=== PATIENT | female | born 1955 | race Caucasian/White ===

== ENCOUNTER 2021-07-30 04:57 | Inpatient (IN) | payer MEDICARE ==
[~2021-07-30] VITALS: Ht 160 cm; Wt 70.0 kg
--- NOTE | 2021-07-30 10:46 | NUR ---
PT BROUGHT TO CCU BY THIS RN. INITIAL ASSESSMENTS COMPLETED. BLOOD ADMINISTRATION INITIATED, FLUIDS STARTED, MD ORDERS REVIEWED. PT HAS 2 IV SITES THAT FLUSH WELL. MULTIPLE BRUISES SCATTERED ALL OVER BODY FROM MULTIPLE REPORTED FALLS. PT REPORTS SHE HAS NOT BEEN EATING OR DRINKING MUCH OVER THE PAST 2 WEEKS, DOES NOT RECALL WHEN LAST BM WAS, BUT DOES REPORT IT BEING BLACK AND TARRY. PT LEFT READERS AND CANE AT HOME, READERS OBTAINED AND GIVEN TO PT. PT ASSISTED TO REPOSITION IN BED. US NOW IN ROOM. PER DR NEWMAN CONSULT WITH DR ALMEIDA, PT WILL DO BOWEL PREP TODAY AND HAVE SCOPE COMPLETED TOMORROW. PT AGREEABLE, BUT REPORTS SHE'S BEEN "DREAMING OF FOOD".
--- NOTE | 2021-07-30 11:14 | NUR ---
DR NEWMAN IN TO SEE PT AND CONSULT OF PLANNED SCOPE PROCEDURE FOR TOMORROW.
--- NOTE | 2021-07-30 12:30 | NUR ---
Spoke with Deidre. She is recieving blood and states she has been very weak, dizzy, and sob. She lives alone in an apartment and states she has no friends here. Her mother, NEELAM lives in [place]. I asked if she has considered moving to [place] and she states not really. We discussed her finances as she thinks she may need placement. She has Part A only. She states she has spent her [facility] and has approx $10,000 in savings. We discussed medicaid, but she will not qualify until she has spent down to $2000. She cannot remember her or her mom's phone number. Let her know I will follow up with her tomorrow to check if she has work ed with PT. She is unsure of what her needs will be. She does not answer when I ask about alcohol and drugs, but per nurses there is an issue wit alcohol. I will follow up with this pt tomorrow.
--- NOTE | 2021-07-30 12:31 | NUR ---
MED REC COMPLETE
--- NOTE | 2021-07-30 13:30 | NUR ---
PT SITTING UP IN BED DRINKING HER CLEAR LUNCH AND ALSO DRINKING MIRALAX FOR PREPROCEDURE CLEAN OUT. BLOOD TRANSFUSING, MAINTENANCE FLUIDS INFUSING. MEANS CATH CONTINUES TO DRAIN ORANGE/KAREEN URINE, QUANTITY SUFFICIENT. PT WATCHING TV, HAS NO OTHER REQUESTS OR NEEDS AT THIS ITME. SHAHNAZ FROM CASE MANAGEMENT IN WITH PT TO ASSESS NEEDS AT DISCHARGE.
--- NOTE | 2021-07-30 15:20 | NUR ---
PATIENT AWAKE IN BED, DRINKING MIRALAX. EXTRA BEDDING REMOVED FROM UNDER PATIENT. BRIEF ON PATIENT AND CHUX UNDER. BACK WAIPED DOWN AND FEET WASHED. LEGS ELEVATED AND SCDS ON. CALL LIGHT IN EASY REACH
--- NOTE | 2021-07-30 16:48 | NUR ---
PT RESTING IN BED HEAD ELEVATED 30 DEGREES, PT'S EYES CLOSED RR EVEN 16 BPM, V/S STABLE NO NEW CONCERNS AT THIS TIME.
--- NOTE | 2021-07-30 17:21 | NUR ---
LAB INTO DRAW BLOOD AT THIS TIME FOR REPEAT CBC.
--- NOTE | 2021-07-30 18:45 | NUR ---
LAB ARRIVED AT NURSES STATION TO REPORT THE CBC MACHINE IS POTENTIALLY IN ERROR WITH LAST BLOOD SAMPLE, HE SAID HE NEEDED A NEW SAMPLE. THIS RN PULLED SAMPLE FROM LEFT FA IV SITE. WASTED 3ML. WHILE IN THE ROOM PT REPORTS "I HAVE BEEN TRYING TO POOP FOR 30MIN, MY GUTS RUMBLING.
--- NOTE | 2021-07-30 20:40 | NUR ---
PATIENT CALLED FOR ASSISTANCE AND HAD A SMALL AMOUNT OF EMESIS. PRN ZOFRAN AND PROTONIX PROVIDED PER ORDERS. PATIENT DENIES NAUSEA STATES "IT'S JUST A REFLEX, MY STOMACH IS TOO FULL". ASSISTED [place] [facility] WAS INCONTINENT OF A MEDIUM LIQUID STOOL. ASSISTED PATIENT TO CLEAN UP AND NEW LINEN AND GOWN PROVIDED. PATIENT RETURNED TO BED. ABLE TO STAND INDEPENDENTLY BUT FEELS DIZZY AFTER A COUPLE MINS. VS STABLE. PATIENT BACK IN BED. CALL LIGHT IN REACH. WARM BLANKET PROVIDED.
--- NOTE | 2021-07-30 21:30 | NUR ---
DISCUSSED PATIENT'S IV FLUIDS WITH MD, PATIENT APPEARS SLIGHTLY DRY. VERBAL ORDER FOR IV FLUIDS RECEIVED. VERIFIED VIA REPEAT BACK.
--- NOTE | 2021-07-30 23:01 | NUR ---
PATIENT RESTING IN BED. IV FLUIDS INFUSING IN LEFT FOREARM. PATIENT REPORTS PAIN IN THE IV SITE ON HER RIGHT HAND. SITE REDRESSED, FLUSHES EASILY. PATIENT DENIES NEED FOR BSC, ATTENDS HAVE SMALL AMOUNT OF STILL. NEW ATTENDS PLACED. PATIENT CONTINUES TO WORK ON HER BOWEL PREP, ABOUT 1/3 OF THE LAST BOTTLE REMAINS. VS STABLE. PATIENT REPORTS FEELING TIRED. ALLOWED PATIENT TO REST. CALL LIGHT IN REACH.
--- NOTE | 2021-07-31 00:30 | NUR ---
PATIENT APPEARS TO BE SLEEPING WITH EYES CLOSED. VS STABLE. URINE OUTPUT AVERAGE 20ML/HR. IV FLUIDS PER ORDER, SITE WNL.
--- NOTE | 2021-07-31 03:00 | NUR ---
PATIENT APPEARS TO BE SLEEPING. WAKES EASILY TO TOUCH. DENIES ANY NEEDS. ASSISTED PATIENT TO REPOSITION IN BED. IV SITE WNL, IVF PER ORDER. MEANS HAS RED URINE NOTED, LOW URINE OUTPUT.
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
--- NOTE | 2021-07-31 06:30 | NUR ---
PATIENT WOKE EASILY. ATTENDS HAVE A LARGE AMOUNT OF STOOL IN ATTENDS. CARLITO CARE DONE. MEANS CARE. BARRIER CREAM APPLIED. PATIENT DENIES PAIN OR NAUSEA. IV FLUIDS PER ORDER. MEANS EMPTIED. VS STABLE. SCDs IN PLACE.
--- NOTE | 2021-07-31 07:06 | NUR ---
DISCUSSED LOW URINE OUTPUT AND LAB RESULTS WITH . VERBAL ORDERS FOR MAG AND K+ REPLACEMENT. AND 2 UNITS OF PRBC TO BE ON HOLD.
--- NOTE | 2021-07-31 07:18 | EKG ---
[facility] [address] [facility] [place], [place] [address] Signed Normal sinus rhythm Prolonged QT Abnormal ECG No previous ECGs available Confirmed by IOANA GUEVARA MD ([id number]) on 07/31/2021 7:18:16 AM Electronically Signed By: IOANA GUEVARA MD 07/31/21 0718 PATIENT NAME: KAREN SEGOVIA Electrocardiogram DATE OF : 51 PHYSICIAN: IOANA GUEVARA MD REPORT #: [id number] REPORT IS CONFIDENTIAL AND NOT TO BE RELEASED WITHOUT AUTHORIZATION
--- NOTE | 2021-07-31 07:45 | NUR ---
CALL LIGHT ANSWERED, PATIENT WAS INCONTINENT OF SMALL AMOUNT OF BROWN STOOL. NEW BRIEF PROVIDED. VITALS CHARTED, MEANS EMPTIED. CALL LIGHT IN EASY REACH. KALPESH GOMEZ IN ROOM AT THIS TIME
--- NOTE | 2021-07-31 08:20 | NUR ---
Dr. Mendez notified patient is not having clear stools yet. Informed this nurse she will have an upper scope today, complete bowel prep this afternoon and lower likely tomorrow. No other orders at this time.
--- NOTE | 2021-07-31 08:20 | NUR ---
CALL LIGHT ANSWERED, PATIENT UP TO BSC. PATIENT FEELS URGE BUT UNABLE TO HAVE BM. DR GUEVARA IN TO SEE PATIENT. PATIENTS HAIR COMBED AND PARTIAL BEDBATH GIVEN. PATIENT BACK TO BED. LEFT IV IS LEAKING SLIGHTLY, AND BLOOD NOTED IN KALPESH MEANS AND DR YOUNG. CALL LIGHT IN EASY REACH. NO OTHER NEEDS AT THIS TIME
--- NOTE | 2021-07-31 08:28 | NUR ---
Called and spoke with Marlyn from [facility]. Requested to establish care for this pt with Dr. Sandy. Marlyn states this pt has seen Clarissa Miller 4 times through the walk in clinic. Asked if she could establish care with whomever she can get. Pt had stated she doesn't care, just wants a PCP.
--- NOTE | 2021-07-31 10:36 | NUR ---
PATIENT RESTIN COMFORTABLY IN BED. NO NEEDS AT THIS TIME. CALL LIGHT IN REACH
--- NOTE | 2021-07-31 12:15 | NUR ---
PATIENT SCOOTS TO CART FROM BED WITH MOD ASSIST X1. MEANS CATHETER BAG EMPTIED. INCONTINENT OF SMALL AMOUNT OF LOOSE, BROWN STOOL. TAKEN TO SURGERY ON CART WITH SURGERY NURSE. NO LONGER ON HEART MONITOR OR VITALS MACHINES FOR TRANSFER FOR SURGERY.
--- NOTE | 2021-07-31 13:28 | NUR ---
Returns from surgery. Lethargic but waking up quickly. Assessment completed. Denies pain. VS WNL. Call light in reach, bed rails up X2.
--- NOTE | 2021-07-31 16:25 | NUR ---
Patient sitting up in bed, drinking miralax for bowel prep. Alert and oriented. Remains without signs of alcohol withdrawal at this time.
--- NOTE | 2021-07-31 17:25 | NUR ---
Update from Rn. Pt EGD was completed, she was unable to complete prep for colonoscopy and cont. prep at this time. I did receive a call from the [facility] and pt has been scheduled to see Clarissa Miller August 11 at 2 pm for a pcp.
--- NOTE | 2021-07-31 20:00 | NUR ---
ROUNDING ON PT SHE IS SITTING UP IN BED ALERT AND ORIENTED, SHE HAS FINISHED HER BOWEL PREP AND IS NOW EATING HERE CLEAR LIQUID TRAY. SHE REPORTS NO PAIN OR NAUSEA AT THIS TIME. DISCUSSED PLAN OF CARE CINTIA, UP TO BEDSIDE COMMODE/BEDPAN, NPO AT 0300.
--- NOTE | 2021-07-31 21:22 | NUR ---
ROUNDING INTO PT ROOM FOR ASSESSMENT AND HS MEDICATIONS, PT RESTING INBED, SHE SAID "IM WET MY WHOLE BED IS WET" THIS RN ASSISTED PT UP TO BEDSIDE COMMODE WITH CANE PROVIDED PER HER BASELINE. PT TOLERATED ACTIVITY WELL, MINIMAL LIFT ASSIST. FULL BED CHANGE AND FULL PT WIPE DOWN, PT ASSIST BACK TO BED, PROVIDED WARM BLANKETS SHE HAS COMPLETED HER CLEAR LIQUID TRAY, SHE REPORTS NO PAIN OR NAUSEA. PT'S FULL BED SOAKED WITH YELLOW BILE COLOR STOOL, DEPENDS ENTIRELY SATURATED, PT GOWN WAS SATURATED. PT BT ACTIVE. SHE REPORTS SHE DOES NOT FEEL HER STOMACH RUMBLING ANYMORE.
--- NOTE | 2021-07-31 23:22 | NUR ---
PT RESTING QUIETLY IN BED, EYES CLOSED RR REGULAR AT 14 BPM, OXYGEN SATURATION AT 94% ON ROOM AIR. NO DISTRESS NOTED.
--- NOTE | 2021-08-01 01:29 | NUR ---
PT CALLED TO REPORT "I EITHER NEED TO GO OR MAYBE I HAVE ALREADY GONE" IN REGARDS TO BM. PT ROLLED TO SIDE, SHE HAD INCONT. OF LIQUID STOOL YELLOW COLOR NO FORMED PARTICLES. PT CHANGED BARRIER CREAM APPLIED, AFTER CLEANING SKIN WELL, PT SAID "OH, I HOPE I AM DOING GOOD AND CAN GO HOME TOMORROW" THIS RN EXPLAINED TO PT THAT AFTER HER PROCEDURE SHE MAY NEED SOME PHYSICAL THERAPY TO ASSESS IF SHE IS SAFE TO D/C WHEN THE DOCTORS DECIDE YOU ARE MEDICALLY CLEARED YOU HAVE NOT BEEN UP AMBULATING, AND YOU HAVE HAD MULTIPLE FALLS AT HOME. PT SAID "I WILL DO WHAT EVER I NEED TO SO I CAN GO HOME SAFE"
--- NOTE | 2021-08-01 04:19 | NUR ---
PT RESTING QUIETLY IN BED EYES CLOSED, RR 13 BPM, NO DISTRESS ON VISUAL ASSESSMENT.
--- NOTE | 2021-08-01 05:47 | NUR ---
ROUNDING IN PT ROOM, PT REPORTS SHE IS PASSING GAS, CHECKED DEPENDS FOR STOOL, DEPENDS ARE CLEAN. PT REPOSITIONED IN BED. NO OTHER NEEDS AT THIS TIME. CRITICAL VALUE REPORTED TO AND CHARTED ACCORDINGLY
--- NOTE | 2021-08-01 06:45 | NUR ---
blood infusion started at this time
--- NOTE | 2021-08-01 08:05 | OR ---
[facility] [address] [place], [place] [address] Signed DATE OF OPERATION: 07/31/2021 SURGEON: Petty Newman MD PREOPERATIVE DIAGNOSES: 1. Anemia. 2. Possible chronic diarrhea. 3. History of daily alcohol use. 4. Pancytopenia. 5. Ultrasound with negative cirrhosis of the liver or varices. POSTOPERATIVE DIAGNOSIS: Ngvaisll-dn-veqyah diffuse gastritis. PROCEDURES: Esophagogastroduodenoscopy with CLOtest and biopsy of the pyloric bulb and antrum. ESTIMATED BLOOD LOSS: None. INDICATIONS: Karen is a 65-year-old female, who apparently lives alone and is living off her savings. She does drive, but she likes to drink vodka everyday. It has been over 12 years since she has been to a doctor. She is and never having children. She said her mom is down around [place], [place]. She thinks she has intermittent melena for years. She has been developing increasing dyspnea on exertion and falling frequently with multiple ecchymoses around her body. She said she can usually call her neighbor, who can come and help her get up. On this occasion, she was unable to reach the phone initially, and finally when she did reach the phone, she called EMS to come to the local ER. In the ER, her stool was brown on exam and guaiac negative. Her abdomen did not show any hepatosplenomegaly or ascites. Her speech is a bit slow, but generally appropriate. She has pancytopenia, including hemoglobin level of 7.1 with a mean cell volume of 104 and the platelet count is down at 80. Her BUN was only 23, the creatinine is 1.23, INR was 1.2. Her alcohol was negative. Total bilirubin is 2.5, AST 83, ALT T 37, alkaline phosphatase is 64, albumin was 3.3. The ultrasound of liver came back and there was some fatty liver, but no obvious cirrhosis or ascites or portal hypertension. Her COVID was negative, and the urine seemed to be dirty, awaiting on the urine culture. In the meantime, she was admitted to the Internal Medicine Service. She received 2 units of packed red blood cells and now her hemoglobin is up to 9.3. Her chest x-ray was unremarkable. I have been asked to see her yesterday as a general surgeon on-call. Electronically Signed By: PETTY NEWMAN MD 08/01/21 0805 PATIENT NAME: KAREN SEGOVIA OPERATIVE REPORT DATE OF : 51 REPORT #: [id number] PHYSICIAN: PETTY NEWMAN MD PCP: NO PRIMARY CARE PHYSICIAN REPORT IS CONFIDENTIAL AND NOT TO BE RELEASED WITHOUT AUTHORIZATION [facility] [address] [place] [id number] Signed She really did not tolerate her bowel prep very well and vomited up a fair amount of that. Therefore, we decided today just to do the upper endoscopy. Of course, she is on Protonix twice a day at this point. She told me she has never had upper lower endoscopy. I explained to her the nature of the two tests. She understands there is risk including, but not limited to gas bloating, crampy abdominal pain, bleeding, perforation requiring surgery, and missed diagnosis. Also, because of her significant medical issues and her acute situation, we asked for monitored anesthesia care, which proved to be a dyer decision. She had expressed understanding and wished to proceed. DESCRIPTION OF PROCEDURE: Karen was taken into our endoscopy suite and placed in the supine semi-recumbent position. A bite block was utilized for the case. She was given monitored anesthesia care with propofol per our nurse hvac installation technician. The adult gastroscope was introduced and advanced under direct visualization of camera into the stomach. She clearly had ljvfshjg-jy-eqavez diffuse hemorrhagic gastritis. The scope passed down to the antrum, it took me a few minutes to get through the antrum into the pyloric bulb and out into the duodenum. The duodenum was unremarkable. The pyloric channel of course was inflamed as was the stomach, no ulcerations. We took biopsies from the pyloric bulb as well as antrum for pathologic review. I took biopsies from the antrum for CLOtest. Upon retroflexion of scope, I could not appreciate any hiatal hernia. The scope was then withdrawn up to the GE junction, which was compliant without stricture. In general, the Z-line remains intact. There is only minimal disruption to the Z-line. There was no Polanco mucosa. We could not appreciate any esophageal varices. The distal, middle, and upper esophagus were unremarkable. After this, the gas was suctioned out, the gastroscope removed. Karen tolerated the procedure quite well. RECOMMENDATIONS: Karen will be returned to the ICU bed on the Internal Medicine Service. She will be allowed clears today. We will see if she can tolerate some additional bowel prep today with possible colonoscopy tomorrow with the next day. If that is not successful, she might need had this done as an outpatient once her gastritis settles down. In the meantime, she will stay on her proton pump inhibitor. Petty Newman MD ALB/MODL /[id number] Electronically Signed By: PETTY NEWMAN MD 08/01/21 0805 PATIENT NAME: KAREN SEGOVIA OPERATIVE REPORT DATE OF : 51 REPORT #: [id number] PHYSICIAN: PETTY NEWMAN MD PCP: NO PRIMARY CARE PHYSICIAN REPORT IS CONFIDENTIAL AND NOT TO BE RELEASED WITHOUT AUTHORIZATION [address] [address] Signed cc: Patient Chart Petty Newman MD Copies: PETTY NEWMAN MD ~ Electronically Signed By: PETTY NEWMAN MD 08/01/21 0805 PATIENT NAME: KAREN SEGOVIA OPERATIVE REPORT DATE OF : 51 REPORT #: [id number] PHYSICIAN: PETTY NEWMAN MD PCP: NO PRIMARY CARE PHYSICIAN REPORT IS CONFIDENTIAL AND NOT TO BE RELEASED WITHOUT AUTHORIZATION
--- NOTE | 2021-08-01 09:01 | NUR ---
IN PATIENT'S ROOM FOR ASSESSMENT, CERTIFIED TRAVEL COUNSELOR, AND VITALS. PT IS ALERT, ORIENTED AND TALKATIVE THIS AM. PT WAITING TO HAVE HER LOWER SCOPE TODYA AND REMAINS NPO. PT EAGER TO START SOLID FOODS TODAY. IV MAG FINISHED. 1 UNIT OF PRBCs HAS NOW COMPLETED. IV POTASSIUM AND MORE IV MAG TO BE STARTED.
--- NOTE | 2021-08-01 09:24 | NUR ---
SP02 DROPPING TO 88% AND THEN COMING BACK UP TO 90-91%. PT ASKED TO TAKE DEEP BREATHS BUT STILL HAS SOME TIMES OF 88%. 2 L NC APPLIED TO PATIENT. SODIUM PHOS NOW INFUSING, POTASSIUM 40 MEQ, AND IV MAG. PT TOLERATING WELL. PT TO SIGN CONSENT FORM FOR LOWER SCOPE.
--- NOTE | 2021-08-01 11:43 | NUR ---
[facility] ANESTHESIA GAVE REPORT TO KALPESH IVERSON.
--- NOTE | 2021-08-01 11:45 | NUR ---
PATIENT OFF TO LOWER SCOPE AT 1045. PT RETURNS TO CCU AT 1125 AFTER SCOPE. PT AWAKENING FAIRLY EASILY AND ANSWERING QUESTIONS. PER REPORT FROM MIXING OPERATOR, PT DID WELL WITH PROCEDURE AND ONLY RECEIVED IV PROPOFOL FOR SEDATION. DR. NEWMAN IN ROOM AND DISCUSSES WITH PATIENT HOW HER SCOPE WENT. PT TO ADVANCE TO A REGULAR DIET AND CAN HAVE MEANS D/C LATER. NEW IV INTO RIGHT FOREARM BY THIS RN. IV CALCIUM GLUCONATE STARTED WITH IV POTASSIUM, AND SODIUM PHOS NOW RESUMES AT 43 ML/HR.
--- NOTE | 2021-08-01 11:57 | NUR ---
1 UNIT OF PLATELETS STARTED AT 1154 INTO NEW IV IN RIGHT FOREARM ON STRAIGHT BLOOD TUBING AND DRIPPING VERY SLOWLY FOR THE FIRST 15 MINUTES. PT HUNGRY AND REQUESTING A STEAK DINNER, A HAM AND CHEESE SANDWICH WITH LETTUCE, AND A CUCUMBER. EXPLAINED TO PATIENT THAT WE WILL BE STARTING HER BACK ON FOOD SLOWLY, STARTING WITH CLEAR LIQUIDS. WATER AND JELLO PROVIDED. PT AWAKE AND FEEDING HERSELF JELLO AT THIS TIME AND ALSO DRINKING WATER. CONTINUE TO MONITOR CLOSELY.
--- NOTE | 2021-08-01 20:00 | NUR ---
ARRIVED TO SHIFT, RECIEVED HAND OFF REPORT, FOCUSED ASSESSMENT COMPLETED, MEDS, LABS, ORDERS REVIEWED, HEAD TO TOE ASSESSMENT COMPLETED, PT HAS NO CURRENT QUESTIONS OR CONCERNS. SIDE RAILS UP X 3, CALL LIGHT WITHIN REACH
--- NOTE | 2021-08-01 21:48 | NUR ---
PT RESTING IN BED, HOB SLIGHTLY ELEVATED, EVENING MEDICAITONS GIVEN PER MAR, SIDE RAILS X 3 RAISED, CALL LIGHT WITHIN REACH, NO NEEDS AT THIS TIME
--- NOTE | 2021-08-01 23:03 | NUR ---
PT ASSISTED TO BSC, ENCOURAGING PT TO INCREASE INDEPENDENCE VIA MOVING OWN BLANKETS AND ASSISTING TO A SITTING POSITION. PT ABLE TO STAND WITH LITTLE ASSISTANCE HOWEVER REMAINS UNSTEADY. PT ASSISTED BACK TO BED AND PLACED IN POSITION OF COMFORT
--- NOTE | 2021-08-02 01:29 | NUR ---
PT CALLED FOR ASSISTANCE UP TO BSC, UP TO BSC WITH ASSIST, WAS ABLE TO VOID 175ML KAREEN URINE, HR REMAINED STEADY WHILE UP 80-90'S THEN SITUATED BACK IN BED WITH CALL LIGHT IN REACH.
--- NOTE | 2021-08-02 02:42 | NUR ---
PT RESTING IN BED, VITALS WNL, PT DOES HAVE MOMENTS OF DESATURATION WHILE ASLEEP HOWEVER RECOVERS QUICKLY, SIDE RAILS X 3 RAISED, CALL LIGHT WITHIN REACH
--- NOTE | 2021-08-02 06:16 | NUR ---
PT RESTING IN BED, WAS UP MULTIPLE TIMES TO VOID THROUGHOUT NIGHT, ENCOURAGING PT ASSISTANCE IN MOVEMENT AND STANDING, LABS REVIEWED, VITALS WNL, SIDE RAILS X 2 RAISED, CALL LIGHT WITHIN REACH, AWAITING DAY SHIFT FOR REPORT
--- NOTE | 2021-08-02 08:38 | NUR ---
DR. GUEVARA IN ROOM TO SEE PATIENT AT THIS TIME. PT WANTING TO GET UP TO USE COMMODE.
--- NOTE | 2021-08-02 09:04 | OR ---
[facility] [address], [place] [address] Signed DATE OF OPERATION: 08/01/2021 SURGEON: Petty Newman MD PREOPERATIVE DIAGNOSES: 1. Anemia. 2. [id number]-[id number] alcohol-related gastritis, hepatitis and pancytopenia. POSTOPERATIVE DIAGNOSES: 1. Colonic petechiae. 2. Moderate internal hemorrhoids. 3. Small amount of liquid melenic stool in the cecum. PROCEDURE: Colonoscopy with cold biopsies of the cecum and distal right colon. ESTIMATED BLOOD LOSS: None. INDICATIONS: Deidre is a 65-year-old female, who came to us with what sounds like intermittent melena over the course of a few years. She has been developing increasing shortness of breath and dyspnea on exertion. She has been falling. She has ecchymoses over much of her gluteal area. She apparently calls her friend and neighbor who come and help lift her up. On this occasion for some reason, she could not reach the phone until morning and she decided to call 911. She was brought to the emergency room for evaluation. In the emergency room, she was said to have brown stool, which was guaiac negative. She was found to be pancytopenic with elevated mean cell volume of 104. INR was only slightly elevated at 1.2. Albumin was 3.3 and her total bilirubin and liver function tests are up just a bit. Ultrasound of the liver was unremarkable with respect to cirrhosis or ascites or portal hypertension. Her BUN was not particularly concerning at 23. Chest x-ray was unremarkable. She had been admitted to the Internal Medicine service. She has received some packed red blood cells. Overall, she is improved. As expected, her albumin has fallen to 2.2 and her electrolytes have been low and we have been replacing those each day. I did her upper endoscopy yesterday and she had moderate to severe diffuse hemorrhagic gastritis. She has been on her Protonix IV b.i.d. She could not tolerate the bowel prep. Initially, it was a little hard on her stomach and she had been vomiting, but after the upper endoscopy with her fluid resuscitation and so forth, she was feeling better and she was able to tolerate her bowel prep yesterday. This morning, when I met with Deidre, it is very clear that she is much more Electronically Signed By: PETTY NEWMAN MD 08/02/21 0904 PATIENT NAME: DEIDRE SEGOVIA OPERATIVE REPORT DATE OF : 51 REPORT #: [id number] PHYSICIAN: PETTY NEWMAN MD PCP: NO PRIMARY CARE PHYSICIAN REPORT IS CONFIDENTIAL AND NOT TO BE RELEASED WITHOUT AUTHORIZATION [facility] [address], [place] [address] Signed hydrated. She is a little jaundiced. She does have some dependent edema along the posterior aspect of her thighs and in the gluteal area. She has no abdominal pain whatsoever. The nurses felt like the stool had cleared. I reviewed with Deidre the nature of colonoscopy. She understands there is risk including, but not limited to gas bloating, crampy abdominal pain, bleeding, perforation requiring surgery, and missed diagnosis. Also, because of her severe medical issues, we asked that Anesthesia provider help us with increased monitoring and sedation with propofol. She had expressed understanding and wished to proceed. PROCEDURE NOTE: Deidre was taken into our endoscopy suite and placed in the left lateral decubitus position. She was given monitored anesthesia care with propofol per our nurse strategic account director. Her platelet count was down to 37,000, so we have platelets coming here shortly. Again, we were in the process of replacing her electrolytes. Obviously, she is chronically depleted. We could see that she has quite a bit of ecchymoses over her lumbar area and her gluteal area. Her skin is jaundiced. A digital rectal exam was performed. She had good sphincter tone. No external hemorrhoids. No masses. The adult colonoscope had been introduced and advanced under direct visualization of camera. It took a few minutes to get up to her sigmoid colon. The scope was dragging a little bit. It passed fairly readily up almost to the cecum. It took a little abdominal compression to advance the scope the last bit into the cecum itself. Overall, her prep was quite good. She had a little bit of liquid melenic stool in her cecum. We irrigated that out extensively and suctioned it until clear. We can see that in the cecum and right colon, she had some irritation from the bowel prep as she did in the distal rectum. Essentially, she has petechiae. We had taken pictures throughout for photodocumentation. As we withdrew the scope, I took a biopsy opposite to ileocecal valve and one in the distal right colon. We noticed as we traveled down the right colon the petechiae became less. We could see that at the hepatic flexure and other areas where the scope was rubbing against the colonic wall, she had petechiae. Once we got back down to the sigmoid colon, it was similar with the petechiae. The rectum had been clear initially. We then retroflexed the scope and we could see that she has moderate internal hemorrhoids. When we anteflexed the scope, we can see immediately she had petechiae from retroflexing the scope. After this, the gas had been suctioned out and the colonoscope removed. Deidre tolerated the procedure quite well. RECOMMENDATIONS: Deidre will be returned to her room to the Internal Medicine service. She will be receiving her platelet transfusion here shortly. We will continue to replace her electrolytes. We will start to advance her diet. Electronically Signed By: PETTY NEWMAN MD 08/02/21 0904 PATIENT NAME: ISHA SEGOVIAOSCAR Gay OPERATIVE REPORT DATE OF : 51 REPORT #: [id number] PHYSICIAN: PETTY NEWMAN MD PCP: NO PRIMARY CARE PHYSICIAN REPORT IS CONFIDENTIAL AND NOT TO BE RELEASED WITHOUT AUTHORIZATION [address] [address] Signed MD ROSINA Payne/EVARISTO /[id number] cc: Petty Newman MD Patient Chart Copies: PTETY NEWMAN MD ~ Electronically Signed By: PETTY NEWMAN MD 08/02/21 0904 PATIENT NAME: LUCADEIDRE Gay OPERATIVE REPORT DATE OF : 51 REPORT #: [id number] PHYSICIAN: PETTY NEWMAN MD PCP: NO PRIMARY CARE PHYSICIAN REPORT IS CONFIDENTIAL AND NOT TO BE RELEASED WITHOUT AUTHORIZATION
--- NOTE | 2021-08-02 11:22 | NUR ---
DR. NEWMAN IN TO SEE PATIENT. PT RESTING IN BED AT THIS TIME. PT WILL TRANSFER TO MEDICAL FLOOR LATER TODAY WITHOUT TELEMETRY.
--- NOTE | 2021-08-02 16:35 | NUR ---
Pt. arrives to [facility] in hospital bed from CCU. Report recieved from Ness POSEY. Pt A+O interacting with staff. Pt on RA LSC. HRR, generalized edema in legs and arms, mild distention in ABD, all bowel tones active. Pt skin warm and dry, scattared bruises from previous fall. IV WNL. No pain at this time. Pt denies further needs. call light in reach.
--- NOTE | 2021-08-02 17:30 | NUR ---
In pt room to administer scheduled tums. Pt repsitioned in bed, and provided dinner. Pt denies further needs. Will continue plan of care.
--- NOTE | 2021-08-02 19:55 | NUR ---
SHIFT REPORT FROM CALLY RN STUDENT. PT TRANSFERED FROM CCU TODAY, SHE HAS HAD NO PAIN OR NAUSEA, SHE IS CONCERNED ABOUT SAFE DISCHARGE PLAN, PT/OT IS NOW ORDERED WILL ASSESS FOR SAFE DISCHARGE PLAN GOING FORWARD. V/S STABLE NO NOTED BLOOD LOSS OVER SHIFT
--- NOTE | 2021-08-02 20:48 | NUR ---
ROUNDING..PT RESTING IN BED, ASSESSMENT, V/S AND I/O COMPLETE. PT ALERT AND ORIETNED, SHE REPORTS NO PAIN OR NAUSEA AT THIS TIME. SHE REPORTS SHE WANTS TO VOID AGAIN BEFORE TRYING TO SLEEP. PT 1P ASSIST WITH CANE TO BEDSIDE COMMODE, PT VOIDED 100ML KAREEN COLORED URINE. PT BACK TO BED. FRESH WATER PROVIDED, ROOM PICKED UP. GARBAGE EMPTIED. PT HAS NO FURTHER REQUESTS OR CONCERNS AT THIS TIME.
--- NOTE | 2021-08-02 23:06 | NUR ---
1 PA TO BEDSIDE COMMODE USING WALKER. ASSISTED ON CARLITO WIPES. PATIENT IS BACK IN BED. SCD'S BACK ON. NO OTHER CARE NEEDS AT THIS TIME. CALL LIGHT WITHIN REACH.
--- NOTE | 2021-08-03 02:35 | NUR ---
CALL LIGHT ANSWERED, pt UP SBA WITH FWW TO BSC AND BACK TO BED. STEADY ON FEET. UNMEASURED VOID AND SMALL BM NOTED, BROWN IN COLOR. CALL LIGHT IN REACH, NO FURTHER NEEDS OR CONCERNS VERBALIZED.
--- NOTE | 2021-08-03 03:50 | NUR ---
PT CALLED NURSES STATION TO REQUEST ASSISTANCE TO USE BEDSIDE COMMODE.
--- NOTE | 2021-08-03 03:59 | NUR ---
1pa WITH WALKER TO BEDSIDE COMMODE. PATIENT IS BACK IN BED. NO OTHER NEEDS AT THIS TIME. CALL LIGHT WITHIN REACH.
--- NOTE | 2021-08-03 06:04 | NUR ---
1 PA TO BEDSIDE COMMODE USING WALKER. PATIENT IS BACK IN BED. V/S AND I&O'S DONE AND RECORDED.
--- NOTE | 2021-08-03 06:45 | NUR ---
PT ALERT AND ORIENTED THIS AM, SHE IS LOOKING FORWARD TO BREAKFAST AND LOOKING FORWARD TO PHYSICAL THERAPY. SHE REPORTS NO PAIN OR NAUSEA. PT ASKED FOR A CUP OF APPLESAUCE THIS AM WITH ABX, PROVIDED. NO OTHER CONCERNS OR REQUESTS AT THIS TIME. PT REPORTS THAT SHE DID NOT SLEEP WELL SHE HAD TO GET UP TO VOID FREQUENTLY.
--- NOTE | 2021-08-03 07:30 | NUR ---
Report received from Catherine POSEY. VSS, on RA, no needs identified at this time. will continue POC.
--- NOTE | 2021-08-03 08:23 | NUR ---
This RN supervising SN Glenroy Goldsmith with all patient interactions, medications and assessments
--- NOTE | 2021-08-03 09:03 | NUR ---
In pt room to administer scheduled medications. Pt a+o breathing even and unlabored, LSC, HRR. Pt has generalized +1 edema, scatter bruising. IV WNL. pt skin warm and dry. bowel tones active. Pt able to swallow pills whole. Pt repositioned in bed, no further needs at this time. Will continue plan of care. call light in reach.
--- NOTE | 2021-08-03 10:16 | NUR ---
Pt working with Valery MAYNARD, requests pain medication. PRN tylenol provided, 4/10 pain in lower back. no further needs at this time. call light in reach.
--- NOTE | 2021-08-03 10:25 | NUR ---
I was able to meet with Deidre this morning and discuss her care while here in the hospital. Deidre states that the nurses are "taking good care of me." She also states that "the care is great, the nurses are very kind and respectful "even when giving me tough love." She further elaborated that the nurses are helpful because "they are getting me up even when I don't want to."Deidre also expressed gratitude to Valery the Physical therapist, stating "Valery was very nice and has been very patient with me" then added "I really appreciate that." Deidre is alert and oriented to person/place/time, and she answers questions appropriately. She mentioned that she would really like to go home, we again discussed PT and her need to get stronger when up so that she could be safe to discharge. At this time Deidre verbalizes that she knows this is very important. No other questions or concerns were expressed at this time.
--- NOTE | 2021-08-03 11:28 | NUR ---
PT IS WORKING WITH OT, OT ASSITED PT UP TO CHAIR FOR MEAL. NO ASSISTANCE NEEDEDD AT THIS TIME.
--- NOTE | 2021-08-03 12:12 | NUR ---
Rounded on pt., COLBY Glass in room to set food tray up. no futher needs at this time.
--- NOTE | 2021-08-03 12:45 | NUR ---
ASSITED PT BACK TO BED FROM CHAIR. CALL LIGHT WITHIN REACH, WARM BLANKETS PROVIDED. NO FURTHER ASSITANCE NEEDED AT THIS TIME
--- NOTE | 2021-08-03 13:34 | NUR ---
Rounded on pt. request warm blanket, provided. pt resting in bed and states "i met my goal of getting up for lunch and walking around with PT" no further needs at this time. call light in reach, will continue POC.
--- NOTE | 2021-08-03 14:11 | NUR ---
Call light answered. pt assisted to restroom, FWW, SBA. Pt back in bed repositioned. no further needs.
--- NOTE | 2021-08-03 14:49 | NUR ---
ASSISTED PT TO BR, 1P FWW. PT REFUSED SHOWER TODAY, STATED SHE IS TOO TIRED, MAYBE TOMORROW. PT BACK IN BED CALL LIGHT WITHIN REACH, NO FURTHER ASSITANCE NEEDED AT THIS TIME.
--- NOTE | 2021-08-03 15:00 | NUR ---
In pt room to answer call light, SCDs came loose readjusted. pt denies further needs. call light in reach.
--- NOTE | 2021-08-03 16:45 | NUR ---
Spoke with Deidre. I was notified she was wanting HH. When I spoke with her, she states she is wanting a cg 3 x per week. I then reminded her of our conversation about medicare does not cover the cost of cg. I gave her brochures for [employer] and how to sign up for care givers through the state. This is all out of pocket. Pt is over the amount of savings for medicaid. She states she will hire a health care liaison. We then discussed again when she has spent down to $2000 in her savings she may qualify for a state paid cg if she meets the physical requirements. We again discussed [facility] and she is now willing to speak with them. I called Anaya from [facility] and he will see her tomorrow am when he comes in to work.
--- NOTE | 2021-08-03 17:30 | PATH ---
[facility] [address], [place] [address] Signed SPECIMEN(S): A DUODENAL BULB BIOPSY SPECIMEN(S): B ANTRUM/PYLORUS BIOPSY SPECIMEN SOURCE: A. DUODENAL BULB BIOPSY B. ANTRUM/PYLORUS BIOPSY CLINICAL HISTORY: GI bleed. Post-op: Gastritis. FINAL PATHOLOGIC DIAGNOSIS: A. Duodenal bulb, biopsy: - Peptic duodenitis. - Negative for dysplasia or malignancy. B. Antrum, biopsy: - Antral mucosa with reactive gastropathy. - Negative for Helicobacter organisms on HE stain. - Negative for dysplasia or malignancy. NAL:[facility]:C2NR MICROSCOPIC EXAMINATION: Histologic sections of all submitted blocks are examined by light microscopy. These findings, together with the gross examination, support the pathologic diagnosis. GROSS DESCRIPTION: Two specimens are received in two containers labeled with "KL". A. The specimen, labeled "KL, 1," and designated on the requisition "duodenum bulb biopsy," is received in formalin and consists of two fragments of pink-lewis tissue (0.3 to 0.4 cm in greatest dimension). The specimen is submitted entirely in cassette A1. B. The specimen, labeled "KL, 2," and designated on the requisition "antrum/pylorus biopsy," is received in formalin and consists of one fragment of pink-lewis tissue (0.3 cm in greatest dimension). The specimen is submitted entirely in cassette B1. AC (under the direct supervision of a pathologist) The Gross Description was prepared using a voice recognition system. The report was reviewed for accuracy; however, sound-alike word errors, addition and/or deletions may occur. If there is any question about this report, please contact Client Services. PATIENT NAME: KAREN SEGOVIA PATHOLOGY DATE OF : 51 REPORT #: [id number] PHYSICIAN: ROBERTO PATHOLOGY PCP: NO PRIMARY CARE PHYSICIAN REPORT IS CONFIDENTIAL AND NOT TO BE RELEASED WITHOUT AUTHORIZATION [facility] [address] [address] Signed PERFORMING LABORATORY: The technical component was performed by [employer] [place] [address] (CLIA# [id number]). Professional interpretation was performed by [facility], [address] [address] (CLIA# [id number]). Diagnostician: Zayra Narvaez MD Pathologist Electronically Signed 08/03/2021 Copies: ~ PATIENT NAME: KAREN SEGOVIA PATHOLOGY DATE OF : 51 REPORT #: [id number] PHYSICIAN: ROBERTO PATHOLOGY PCP: NO PRIMARY CARE PHYSICIAN REPORT IS CONFIDENTIAL AND NOT TO BE RELEASED WITHOUT AUTHORIZATION
--- NOTE | 2021-08-03 17:40 | NUR ---
Scheduled medications administered, pt sitting up in bed eating dinner. She states no pain, nausea, or needs at this time. Call light in reach
--- NOTE | 2021-08-03 19:10 | NUR ---
SHIFT REPORT FROM CHETAN POSEY AND STUDENT RN, PT WORKED WELL WITH PHYSICAL THERAPY WILL NEED 2-3 MORE DAYS OF THERAPY IN HOUSE PER [facility] AND THEN IN HOME HEALTH TO FOLLOW AFTER DISCHARGE. SHE REPORTED PAIN INCREASE TO HER BACK AFTER WORKING WITH PHYSICAL THERAPY, TYLENOL PRN EFFECTIVE FOR MANAGEMENT.
--- NOTE | 2021-08-03 20:00 | NUR ---
sba TO THE BATHROOM USING WALKER. PATIENT HAD LARGE SOFT BM. PATIENT IS BACK IN BED. SCD'S BACK ON. CALL LIGHT WITHIN REACH. NO OTHER CARE OR NEEDS AT THIS TIME.
--- NOTE | 2021-08-03 20:10 | NUR ---
PT UP TO BATHROOM AT THIS TIME WITH COLBY GARCIA TO VOID
--- NOTE | 2021-08-03 20:41 | NUR ---
patient called to use the bathroom. sba. patient asked assistance to do gavin care. patient voided 200 ml slightly dark urine. patient is back in bed. v/s and i&o's taken and charted.
--- NOTE | 2021-08-03 22:30 | NUR ---
PT CALLED THE NURSES STATION TO REPORT HER BACK IS HURTING, THIS RN INTO ADMINSTER 500MG PO TYLENOL PRN AT THIS TIME, ALSO PROVIDED A WARM BLANKET. PT REPORTS SHE NEEDS TO USE BATHROOM, RADHA BOWMAN INTO PT ROOM TO ASSIST TO BATHROOM.
--- NOTE | 2021-08-03 22:40 | NUR ---
PATIENT WAS UP TO THE BATHROOM. SBA WITH WALKER. PATIENT NEEDED ASSISTANCE ON WIPING CARLITO CARE. PATIENT IS BACK IN BED.
--- NOTE | 2021-08-04 01:35 | NUR ---
PT CALLED NURSES STATION FOR ASSISTANCE TO BATHROOM. PT AMBULATED TO BATHROOM WITH ONE PERSON ASSIST AND FWW. PT HAD 250ML URINE OUT AND MEDIUM SIZED, LIGHT BROWN FORMED STOOL. ASSISTED PT BACK TO BED AND STRAIGHTENED BLANKETS, NO OTHER REQUESTS AT THIS TIME.
--- NOTE | 2021-08-04 03:05 | NUR ---
PATIENT WAS UP TO THE BATHROOM SB WITH WALKER AND BACK TO BED. CALL LIGHT WITHIN REACH. NO OTHER CARE NEEDS AT THIS TIME. PATIENT STATED I WILL TRY TO SLEEP FOR THE REST OF THE NIGHT.
--- NOTE | 2021-08-04 04:44 | NUR ---
PT CALLED NURSES STATION TO REQUEST ASSISTANCE TO THE BATHROOM. PT ONE PERSON ASSIST WITH FWW. WILL COMPLETE AM ASSESSMENT, AND V/S AND I/O
--- NOTE | 2021-08-04 05:31 | NUR ---
PT HAS BEEN UP FREQUENTLY TO VOID OVER SHIFT, SHE HAS REQUESTED TYLENOL ONCE FOR CHRONIC BACK PAIN. SHE HAS VERBALIZED HER EXCITEMENT ABOUT PROGRESS WITH PHYSICAL THERAPY, AMBULATING ONE PERSON ASSIST. SHE HAS HAD FORMED [facility] THIS SHIFT. NO NEW CONCERNS THIS SHIFT.
--- NOTE | 2021-08-04 07:15 | NUR ---
Report recieved from Catherine POSEY. pt resting in bed, breathing even and unlabored, no needs identified at this time.
--- NOTE | 2021-08-04 08:52 | NUR ---
In room to administer scheduled medication. Assessment complete. Pt A+O, LSC, HRR, Bowel tones active. Pt states chronic numbness and tingling in lower extremities. pt skin warm and dry. pt had BM today, VQS, tolerating regular diet. pt compliant with plan of care. call light in reach.
--- NOTE | 2021-08-04 09:10 | NUR ---
Notified by staff, [facility] is here and pt let him know she does not need help. In and spoke with pt and reminded this is the person she agreed to see last night. Pt has forgotten our conversation and asks for caregivers in the home. Reminded I gave her two sources where she can hire cg. Pt then remembers and then states she needs to go to a SNF. Reminded she is able to walk and is not deconditioned and per PT does not qualify for a SNF. Pt has [facility] card and states she will call them if she needs them. Pt states she is never going to drink again as this led to a bad place. We then discussed how hard it is to stop without help and they are resources to assist her. Pt states she will think about it.
--- NOTE | 2021-08-04 09:45 | NUR ---
Pt ambulating in hallway with PT, pt tolerating well on RA.
--- NOTE | 2021-08-04 11:25 | NUR ---
Rounded on pt, who states no needs at this time. call light in reach, pt calls appropriately.
--- NOTE | 2021-08-04 12:36 | NUR ---
PT IS UP TO CHAIR FOR LUNCH, CALL LIGHT WITHIN REACH, NO FURTHER ASSISTANCE NEEDED AT THIS TIME.
--- NOTE | 2021-08-04 14:43 | NUR ---
Rounded on pt. resting in bed "trying to take a snooze". no needs at this time. call light in reach.
--- NOTE | 2021-08-04 16:51 | NUR ---
This RN and SN showered patient who tolerated it well. Ambulates to BR with FWW. Steady gait. Linens and gown changed. Pt on RA, A+O. No other needs, call light in reach
--- NOTE | 2021-08-04 16:57 | PATH ---
[facility] [address] [facility] [place], [place] [address] Signed SPECIMEN(S): A CECAL BIOPSY SPECIMEN(S): B ASCENDING/RIGHT COLON BIOPSY SPECIMEN SOURCE: A. CECAL BIOPSY B. ASCENDING/RIGHT COLON BIOPSY CLINICAL HISTORY: Preop: Chronic history of anemia duration, ETOH related pancytopenia. Postop: Internal hemorrhoid, petechiae of colon FINAL PATHOLOGIC DIAGNOSIS: A. Colon, cecum, biopsy: - Focal minimal active colitis. - Melanosis coli. - Negative for granulomas, dysplasia, or malignancy. - See Comment. B. Colon, ascending, biopsy: - Minimal chronic, active colitis. - Negative for granulomas, dysplasia, or malignancy. - See comment. COMMENT: Regarding specimens A and B: The findings are similar and demonstrate minimal focal active colitis in the form of crypt abscesses. The ascending colon biopsy has focal minimal crypt architectural distortion in the form of crypt branching. There are no granulomas, ulcerations, or basal lymphoplasmacytosis. Overall, the findings are very non-specific and the differential diagnosis includes medication induced injury, and infectious etiologies. Inflammatory bowel disease cannot be entirely excluded, however, this diagnosis us favored less likely due to the minimal histologic changes. NAL:[facility]:C2NR MICROSCOPIC EXAMINATION: Histologic sections of all submitted blocks are examined by light microscopy. These findings, together with the gross examination, support the pathologic diagnosis. GROSS DESCRIPTION: Two specimens are received in two containers, labeled "KL." PATIENT NAME: LUCAKAREN Deidra PATHOLOGY DATE OF : 51 REPORT #: [id number] PHYSICIAN: ROBERTO WOLF PCP: NO PRIMARY CARE PHYSICIAN REPORT IS CONFIDENTIAL AND NOT TO BE RELEASED WITHOUT AUTHORIZATION [facility] [address] [id number] Signed A. The specimen, labeled "KL, cecum biopsy," is received in formalin and consists of one lewis soft tissue fragment that measures 0.2 cm in greatest dimension. The specimen is entirely submitted in cassette (A1). B. The specimen, labeled "KL, ascending colon biopsy," is received in formalin and consists of one lewis soft tissue fragment that measures 0.2 cm in greatest dimension. The specimen is entirely submitted in cassette (B1). JS (under the direct supervision of a pathologist) The Gross Description was prepared using a voice recognition system. The report was reviewed for accuracy; however, sound-alike word errors, addition and/or deletions may occur. If there is any question about this report, please contact Client Services. PERFORMING LABORATORY: The technical component was performed by [facility], [address] [place] [id number] (CLIA# [id number]). [facility] [address] [address] (CLIA# [id number]). Diagnostician: Zayra Narvaez MD Pathologist Electronically Signed 08/04/2021 Copies: ~ PATIENT NAME: KAREN SEGOVIA PATHOLOGY DATE OF : 51 REPORT #: [id number] PHYSICIAN: ROBERTO WOLF PCP: NO PRIMARY CARE PHYSICIAN REPORT IS CONFIDENTIAL AND NOT TO BE RELEASED WITHOUT AUTHORIZATION
--- NOTE | 2021-08-04 17:45 | NUR ---
Scheduled medications administered, pt sitting up in bed after eating dinner, watching tv. she states no needs at this time, call light in reach
[2021-08-04] MEDS ORDERED: MAG-OXIDE400 MG PO (18:34)
[2021-08-04] MEDS ORDERED: VITAMIN B-1100 MG PO (18:34)
[2021-08-04] MEDS ORDERED: FOLIC ACID1 MG PO (18:34)
[2021-08-04] MEDS ORDERED: CALCIUM CARBON200 MG PO (18:34)
[2021-08-04] MEDS ORDERED: PANTOPRAZOLE SO40 MG PO (18:34)
--- NOTE | 2021-08-04 19:06 | NUR ---
IN ROOM FOR REPORT, PT IS AWAKE IN BED. FOOD TASTER COMING INTO ROOM TO TAKE HER TO THE RESTROOM AT THIS TIME. CALL LIGHT IS CLOSE.
--- NOTE | 2021-08-04 20:40 | NUR ---
V/S TAKEN AND CHARTED BY SCIENTIFIC INFORMATICS LEADER GERA.
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
--- NOTE | 2021-08-04 22:02 | NUR ---
IN ROOM TO ASSESS PT AND TAKE HER TO THE RESTROOM. SHE DENIES PAIN AT THIS TIME BUT STATES SHE TOOK THE TYLENOL FOR BACK PAIN. PT DENIES URINARY BURNING/PAIN BUT IS VOIDING FREQUENTLY. PT REPORTS FEELING WEAK AND STATES SHE HAS SOB WITH EXERTION. SHE IS SLOW MOVING SBA WITH FWW. PT REPORTS MANY FALLS AT HOME AND HAS VARIOUS BRUISES ALL OVER BODY. PT DENIES FURTHER NEEDS. CALL LIGHT IS CLOSE. IV FLUSHES FINE.
--- NOTE | 2021-08-04 23:51 | NUR ---
SBA. PATIENT GOT UP TO THE BATHROOM. PATIENT VOIDED 100ML AND A SMALL SOFT BM. PATIENT IS BACK IN BED. NO OTHER NEEDS AT THIS TIME.
--- NOTE | 2021-08-05 00:35 | NUR ---
PATIENT CALLED STATED "I NEED TO USE THE BATHROOM AGAIN". SBA. PATIENT VOIDED 200ML. PATIENT IS BACK IN BED. NO FURTHER NEEDS AT THIS TIME.
--- NOTE | 2021-08-05 00:51 | NUR ---
PT IS RESTING WITH EYES CLOSED, RR IS EVEN AND UNLABORED. CALL LIGHT IS CLOSE.
--- NOTE | 2021-08-05 01:35 | NUR ---
PATIENT CALLED TO USE THE BATHROOM. SBA. PATIENT IS BACK IN BED. SCD'S ON. CALL LIGHT WITHIN REACH.
--- NOTE | 2021-08-05 02:44 | NUR ---
PT IS RESTING WITH EYES CLOSED, RR IS EVEN AND UNLABORED. CALL LIGHT IS CLOSE.
--- NOTE | 2021-08-05 03:09 | NUR ---
PATIENT CALLED TO USE THE BATHROOM. SBA. PATIENT IS BACK IN BED. NO FURTHER NEEDS AT THIS TIME.
--- NOTE | 2021-08-05 04:44 | NUR ---
ASSISTED PATIENT TO RESTROOM BY 1PA W/FWW. PATIENT ABLE TO VOID. PATIENT BACK IN BED RESTING. SCD'S IN PLACE. NO FURTHER NEEDS NOTED. CALL LIGHT WITHIN REACH.
--- NOTE | 2021-08-05 05:58 | NUR ---
PT IS RESTING WITH EYES CLOSED, RR IS EVEN AND UNLABORED. CALL LIGHT IS CLOSE.
--- NOTE | 2021-08-05 06:15 | NUR ---
PT CALLED FOR HELP TO RESTROOM, SBA WITH FWW AND BACK TO BED. SHE DENIES FURTHER NEEDS, VS TAKEN. CALL LIGHT IS CLOSE, SCDS IN PLACE.
--- NOTE | 2021-08-05 07:45 | NUR ---
REPORT RECEIVED FROM NIGHT RN AND PT CARE RESUMED. PT. IS ALERT AND ORIENTED. SHE C/O BLADDER/PELVIC PAIN WHILE VOIDING. SHE AMBULATED TO THE BATHROOM WITH SBA AND FWW. IV SITE WAS LEAKING AND IV REMOVED WITH CATH INTACT. CRACKLES PRESENT IN LLL OF LUNG. SHE IS ON ROOM AIR AND O2 SAT. IS 95%. ADMIN. MEDS, DISCUSSED SAFETY AND POC. LEFT RESTING WITH CALL LIGHT IN REACH.
--- NOTE | 2021-08-05 09:30 | NUR ---
Pt discussed in IDT meeting. Per PT pt does need SNF placement as she does not have safety awareness and is unable to get out of bed on her own. Spoke with pt and she would prefer to remain in town. I spoke with [facility] and they may have a bed open tomorrow and request her chart. Face sheet, H&P, EGD/colonoscopy notes, progress notes, OT?PT notes, Covid vaccine all faxed to [facility] and to [facility] in [place] as it is the next closest [facility] per pt request.
--- NOTE | 2021-08-05 11:39 | NUR ---
ROUNDING ON PT. SHE IS RESTING WITH EYES CLOSED AND RESPIRATIONS ARE EVEN AND UNLABORED.
--- NOTE | 2021-08-05 12:18 | NUR ---
PT UP TO CHAIR FOR MEAL CALL LIGHT WITHIN REACH
--- NOTE | 2021-08-05 14:11 | NUR ---
PT SITTING UP IN BED, SEEMED PLEASED I CAME BY. PT FEELS ISOLATED, SHE FEELS HER FAMILY DOES NOT KNOW SHE IS HERE AND REQUESTED I TRY TO NOTIFY. INFO ON FACE SHEET IS INCORRECT, WILL WORK TO FIND FAMILY. WILL FOLLOW
--- NOTE | 2021-08-05 14:57 | NUR ---
ROUNDING ON PT. AND PT. WAS ASKED TO AMBULATE AROUND THE UNIT. PT. STATES SHE WILL WALK BEFORE DINNER. PT. DENIES FURTHER NEEDS. LEFT RESTING WITH CALL LIGHT IN REACH.
--- NOTE | 2021-08-05 15:32 | NUR ---
ROUNDING ON PT. SHE AMBULATED WITH SBA AND FWW TO THE BATHROOM TO VOID. CLEANED HERSELF WITHOUT ASSISTANCE. AMBULATED TO THE CHAIR AND LEFT RESTING WITH CALL LIGHT IN REACH
--- NOTE | 2021-08-05 17:02 | NUR ---
PT. C/O BACK PAIN AFTER SITTING IN CHAIR. ASSISTED BACK TO BED AND ADMIN TYLENOL. PT. DENIES FURTHER NEEDS AND LEFT RESTING WITH CALL LIGHT IN REACH.
--- NOTE | 2021-08-05 19:20 | NUR ---
SHIFT REPORT RECEIVED FROM DAYSHIFT KALPESH DUKE AT BEDSIDE. pt AWAKE AND RESTING IN BED. DENIES NEEDS OR CONCERNS. CALL LIGHT IN REACH.
--- NOTE | 2021-08-05 19:50 | NUR ---
PT ASSISTED BACK TO BED FROM THE TOILET, NEW ATTENDS IN PLACE, PT REPOSTIONED IN BED BY HERSELF, ICE WATER PROVIDED, NO FURTHER NEEDS AT THIS TIME
--- NOTE | 2021-08-05 22:05 | NUR ---
IN TO ASSIST PT TO THE TOILET, SBA FWW, PT BACK TO BED, VITALS DONE, NO FURTHER NEEDS AT THIS TIME
--- NOTE | 2021-08-05 22:16 | NUR ---
ASSESSMENT COMPLETE, pt DENEIS PAIN AND NAUSEA. BOWEL TONES ACTIVE, NO DISTRESS NOTED. VSS, I&O'S COMPLETE. pt COMPLIANT WITH CARE, RESTING QUIETLY IN BED. CALL LIGHT IN REACH, NO FURTHER NEEDS OR CONCERNS AT THIS TIME.
--- NOTE | 2021-08-05 23:30 | NUR ---
pt AWAKE AND RESTING IN BED, REPORTS FINISHING HER TV BEFORE "GOING TO BED". DENEIS NEEDS OR CONCERNS, CALL LIGHT IN REACH.
--- NOTE | 2021-08-06 01:22 | NUR ---
ASSISTED PATIENT TO THE RESTROOM BY 1PA W/FWW. PATIENT ABLE TO VOID. PATIENT ASSISTED BACK TO BED. SCD'S IN PLACE. NO FURTHER NEEDS NOTED. CALL LIGHT WITHIN REACH.
--- NOTE | 2021-08-06 02:34 | NUR ---
ASSISTED PATIENT TO RESTROOM BY 1PA W/FWW. PATIENT VOIDED & HAD BM. ASSISTED PATIENT BACK TO BED. SCD'S IN PLACE. NO FURTHER NEEDS NOTED. CALL LIGHT WITHIN REACH.
--- NOTE | 2021-08-06 03:38 | NUR ---
pt resting in bed with eyes closed, rr even and unlabored. no distress noted, on ra. call light in reach.
--- NOTE | 2021-08-06 04:20 | NUR ---
PATIENT ASSISTED TO RESTROOM BY 1PA W/FWW. PATIENT ABLE TO VOID. ASSISTED PATIENT BACK TO BED. SCD'S IN PLACE. NO FURTHER NEEDS NOTED. CALL LIGHT WITHIN REACH.
--- NOTE | 2021-08-06 04:57 | NUR ---
pt RESTING IN BED WITH EYES CLOSED, ON RA. RR EVEN AND UNLABORED. NO DISTRESS NOTED. CALL LIGHT IN REACH.
--- NOTE | 2021-08-06 06:33 | NUR ---
ASSISTED PATIENT TO RESTROOM BY 1PA W/FWW. PATIENT VOIDED. ASSISTED PATIENT BACK TO BED. SCD'S IN PLACE. NO FURTHER NEEDS NOTED. CALCINER FEEDER IN ROOM. CALL LIGHT WITHIN REACH.
--- NOTE | 2021-08-06 06:42 | NUR ---
ASSESSMENT COMPELTE, pt AWAKE AND RESTING IN BED. pt DENEIS PAIN AND NAUSEA. BOWEL TONES ACTIVE. VSS, TEMP SOMEWHAT ELEVATED. ROOM TEMP DECREASED. NO NEEDS OR CONCERNS VERBALIZED. CALL LIGHT IN REACH. SCD'S ON.
--- NOTE | 2021-08-06 08:30 | NUR ---
REPORT RECEIVED FROM NIGHT RN AND PT. CARE RESUMED. PT. IS ALERT AND ORIENTED TO ALL BUT DAY. SHE DENIES PAIN AND IS SITTING IN THE CHAIR. FINE CRACKLES PRESENT IN BASES OF LUNGS. SHE STATES THAT SHE IS NOT READY TO GO HOME DUE TO FALLING HX. TRACE EDEMA PRESENT BLE. NO IV SITE, PER MD VERBAL ORDER 08/05/21. PT. ENCOURAGED TO SHOWER AND AMBULATE TODAY. LEFT RESTING WITH CALL LIGHT IN REACH.
--- NOTE | 2021-08-06 09:58 | NUR ---
PT IS LAYING IN BED WATCHING TV. I&O AND VS CHARTED. CALL LIGHT WITHIN REACH NO FURTHER TASKS AT THIS TIME
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
--- NOTE | 2021-08-06 10:41 | NUR ---
In and spoke with Deidre after notified by Lore from OT, pt is refusing therapy. Spoke with Deidre and reminded she had agreed yesterday to participate with PT/OT. This was question by staff at [facility] if pt would participate as it was documented she was refusing. They did not want to accept her if she was not willing to work with therpay. Pt states she just doesn't want to. We then discussed she needs to make a decision if she was wants to go to a SNF or decline and go home. Pt now decides she will just go home as she does not want to participate. Let her know I will update the Dr. she has declined and notified her Dr. will discharge to home today. Pt states understanding.
[2021-08-06] MEDS ORDERED: VITAMIN D325 MCG PO (11:31)
--- NOTE | 2021-08-06 13:33 | NUR ---
ALL DISCHARGE INSTRUCTIONS REVIEWED WITH PT. AND QUESTIONS ANSWERED. NO IV SITE. PT. ASSISTED WITH DRESSING BY RN PROCEDURE. SHE LEFT WITH ALL BELONGINGS VIA WHEELCHAIR WITH RN PROCEDURE AND PICKED UP BY [employer].
--- NOTE | 2021-08-06 16:26 | NUR ---
Chart faxed to [facility] as pt does want HH to work with her. Notified they are approximately 2 wks out. Understanding stated.
--- NOTE | 2021-08-12 09:55 | NUR ---
Received call from Roxane at [facility]. They are unable to contact this pt. or her mother. All phones are showing as not active. They are notifing the pcp they are cancelling this admission.
== END 2021-08-06 13:37 | disposition home or self-care (01) | DRG 378 ==
LOC: ED 04:57 → CCU 08:17 → MS 08:17
PROVIDERS: ADMIT Internal Medicine; ATTEND Internal Medicine
PROC: 30233N1 Transfusion of Nonautologous Red Blood Cells into Peripheral Vein, Percutaneous Approach (ICD-10-PCS; principal; 2021-07-30)
PROC: 0DB78ZX Excision of Stomach, Pylorus, Via Natural or Artificial Opening Endoscopic, Diagnostic (ICD-10-PCS; 2021-07-31)
PROC: 0DB98ZX Excision of Duodenum, Via Natural or Artificial Opening Endoscopic, Diagnostic (ICD-10-PCS; 2021-07-31)
PROC: 0DBH8ZX Excision of Cecum, Via Natural or Artificial Opening Endoscopic, Diagnostic (ICD-10-PCS; 2021-08-01)
PROC: 0DBF8ZX Excision of Right Large Intestine, Via Natural or Artificial Opening Endoscopic, Diagnostic (ICD-10-PCS; 2021-08-01)
DX: K29.21 Alcoholic gastritis with bleeding (principal); D61.818 Other pancytopenia; D62 Acute posthemorrhagic anemia; D46.Z Other myelodysplastic syndromes; Z88.0 Allergy status to penicillin; R82.71 Bacteriuria; E55.9 Vitamin D deficiency, unspecified; E53.8 Deficiency of other specified B group vitamins; K64.8 Other hemorrhoids; E87.6 Hypokalemia
CPT/HCPCS: 00731; 00811; 36415; 36430; 51702; 51798; 71045; 76705; 80048; 80053; 81001; 82306; 82553; 82607; 82728; 83540; 83550; 83735; 84100; 84134; 84425; 84484; 85025; 85060; 85610; 85730; 86850; 86900; 86901; 86922; 87077; 87088; 87502; 88305; 93005; 93010; 97110; 97161; 97165; 97530; 99285-25; A9270; C9113; C9803; G0480; J0610; J2001; J2405; J2704; J3411; J3420; J3475; J3480; J7060; J7121; P9016; P9035; U0003

== ENCOUNTER 2021-09-06 20:18 | Inpatient (IN) | payer MEDICARE, MEDICAID ==
[~2021-09-06] VITALS: Ht 160 cm; Wt 59.4 kg
[~2021-09-06 20:18] MED LIST: CALCIUM CARBON200 MG PO; FOLIC ACID1 MG PO; MAG-OXIDE400 MG PO; PANTOPRAZOLE SO40 MG PO; VITAMIN B-1100 MG PO; VITAMIN D325 MCG PO
[2021-09-07] MEDS ORDERED: ADVIL200 MG PO (09:05)
--- NOTE | 2021-09-08 19:05 | EKG ---
[facility] [address] [facility] [place] [address] Signed Normal sinus rhythm Prolonged QT Abnormal ECG When compared with ECG of 30-JUL-2021 06:42, Nonspecific T wave abnormality now evident in Anterior leads Confirmed by RYANN ALMEIDA MD ([id number]) on 09/08/2021 7:05:25 PM Electronically Signed By: RYANN ALMEIDA MD 09/08/21 1905 PATIENT NAME: LUCAKAREN Deidra Electrocardiogram DATE OF : 51 PHYSICIAN: RYANN ALMEIDA MD REPORT #: [id number] REPORT IS CONFIDENTIAL AND NOT TO BE RELEASED WITHOUT AUTHORIZATION
[2021-09-17] MEDS ORDERED: TYLENOL325 MG PO (10:52)
[2021-09-17] MEDS ORDERED: SERTRALINE HCL50 MG PO (10:52)
[2021-09-17] MEDS ORDERED: MIDODRINE HCL5 MG PO (10:52)
[2021-09-17] MEDS ORDERED: FOLIC ACID1 MG PO (10:53)
[2021-09-17] MEDS ORDERED: CALCIUM CARBON200 MG PO (10:53)
[2021-09-17] MEDS ORDERED: MAG-OXIDE400 MG PO (10:53)
[2021-09-17] MEDS ORDERED: LIDOCAINE1 EACH TD (10:53)
[2021-09-17] MEDS ORDERED: VITAMIN D325 MCG PO (10:54)
[2021-09-17] MEDS ORDERED: VITAMIN B-1100 MG PO (10:54)
[2021-09-17] MEDS ORDERED: MELATONIN3 MG PO (10:54)
== END 2021-09-17 15:00 | disposition home or self-care (01) | DRG 312 ==
LOC: ED 20:18 → MS 20:19
PROVIDERS: ADMIT Hospitalist; ATTEND Hospitalist
DX: I95.1 Orthostatic hypotension (principal); N17.9 Acute kidney failure, unspecified; E51.9 Thiamine deficiency, unspecified; K29.70 Gastritis, unspecified, without bleeding; Z20.822 Contact with and (suspected) exposure to COVID-19; E87.6 Hypokalemia; E83.42 Hypomagnesemia; D64.9 Anemia, unspecified; E83.39 Other disorders of phosphorus metabolism; E55.9 Vitamin D deficiency, unspecified; M48.061 Spinal stenosis, lumbar region without neurogenic claudication; Z88.0 Allergy status to penicillin; Z98.890 Other specified postprocedural states
CPT/HCPCS: 36415; 71045; 72148; 80048; 80053; 81001; 82533; 82553; 83735; 84100; 84439; 84443; 84484; 85025; 85610; 85730; 87502; 93005; 93010; 96374; 97110; 97116; 97163; 97166; 97530; 97535; 99285-25; A9270; C9803; G0480; J0834; J1650; J3475; J3480; J7030; J7121; U0003

== ENCOUNTER 2021-10-13 12:03 | Inpatient (IN) | payer MEDICARE, OTHER ==
[~2021-10-13] VITALS: Ht 160 cm; Wt 59.8 kg
[~2021-10-13 12:03] MED LIST changes: +ADVIL200 MG PO; +LIDOCAINE1 EACH TD; +MELATONIN3 MG PO; +MIDODRINE HCL5 MG PO; +SERTRALINE HCL50 MG PO; +TYLENOL325 MG PO
--- NOTE | 2021-10-13 16:56 | NUR ---
REPORT FROM DOMINGA WAYNE RN. PATIENT IS PENDING COVID TEST.
--- NOTE | 2021-10-13 18:25 | NUR ---
PATIENT ADMITTED TO MED SURG. PATIENT IS SITTING UP IN BED TO EAT DINNER, DENIES PAIN OR NAUSEA, IS PRIMARILY CONCERNED ABOUT THE TV AND REMOTE CONTROL. PERSONAL ITEMS NEAR PATIENT. IVF AND IV MAG REPLACEMENT INFUSING TO LEFT WRIST. PATIENT WAS ABLE TO TRANSFER FROM [facility] TO BED WITH SBA. NO OTHER NEEDS NOTED AT THIS TIME.
--- NOTE | 2021-10-13 19:39 | NUR ---
RECEIVED REPORT FROM DAY SHIFT RN. PATIENT IS RESTING IN BED WATCHING TV AND EATING DINNER. NO NEEDS NOTED. CALL LIGHT IN REACH.
--- NOTE | 2021-10-13 21:20 | NUR ---
PATIENT ASSESMENT COMPLETED. VITALS TAKEN AND RECORDED. IV INFUSING PER ORDER. PM MEDS GIVEN PER ORDER. PATIENT DENIES ANY PAIN. PATIENT ASSISTED TO THE BR A SBA W/FWW. PATIENT ABLE TO VOID. UA SENT. PATIENT IS BACK IN BED RESTING. PATIENT DENIES ANY FURTHER NEEDS. CALL LIGHT IN REACH.
--- NOTE | 2021-10-13 22:23 | NUR ---
PATIENT IS RESTING IN BED WATCHING TV. NO NEEDS NOTED. CALL LIGHT IN REACH.
--- NOTE | 2021-10-13 23:07 | NUR ---
PATIENT PROVIDED WARM BLANKET. PATIENT IS RESTING IN BED WATCHING TV. NO FURTHER NEEDS NOTED. CALL LIGHT IN REACH.
--- NOTE | 2021-10-14 00:25 | NUR ---
PATIENT IS RESTING IN BED WATCHING TV. NO NEEDS NOTED. CALL LIGHT IN REACH.
--- NOTE | 2021-10-14 00:28 | EKG ---
[facility] [address] [facility] [place] [address] Signed Normal sinus rhythm Low voltage QRS Prolonged QT Abnormal ECG When compared with ECG of 06-SEP-2021 20:30, Nonspecific T wave abnormality now evident in Inferior leads Confirmed by IOANA GUEVARA MD ([id number]) on 10/14/2021 12:28:39 AM Electronically Signed By: IOANA GUEVARA MD 10/14/21 0028 PATIENT NAME: SEGOVIAKAREN Electrocardiogram DATE OF : 51 PHYSICIAN: IOANA GUEVARA MD REPORT #: [id number] REPORT IS CONFIDENTIAL AND NOT TO BE RELEASED WITHOUT AUTHORIZATION
--- NOTE | 2021-10-14 02:00 | NUR ---
SBA PATIENT USED THE BATHROOM USING WALKER. PATIENT IS BACK IN BED. V/S AND OUTPUT TAKEN AND RECORDED. PATIENT STATED CANT GO BACK TO SLEEP MIGHT WELL WATCH TV. CALL LIGHT IS IN REACH. DENIES ANY NEEDS AT THIS TIME.
--- NOTE | 2021-10-14 04:12 | NUR ---
PATIENT IS RESTING IN BED WATHCING TV. IV INFUSING PER ORDER. PATIENT DENIES ANY PAIN. FRESH WATER PROVIDED. NO NEEDS NOTED. CALL LIGHT IN REACH. BED ALRM ON FOR SAFETY. WARM BLANKET PROVIDED.
--- NOTE | 2021-10-14 06:35 | NUR ---
PATIENT IS BACK IN BED AFTER UP TO THE BR WITH ACCOUNTING ASSISTANT. PATIENT DENIES ANY NEEDS. CALL LIGHT IN REACH. BED ALARM ON FOR SAFETY.
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
--- NOTE | 2021-10-14 12:22 | NUR ---
IV START ATTEMPTED TWICE AND VEIN BLOWN. CHARGE WILL ATTEMPT.
--- NOTE | 2021-10-14 15:00 | NUR ---
ASSESSMENT COMPLETED. PT. IS ORIENTED TO ALL BUT DATE. SHE STATES SHE IS NAPPING AND APPETITE HAS IMPROVED TODAY. IV POTASSIUM INFUSING. PT. LEFT RESTING WITH CALL LIGHT IN REACH.
--- NOTE | 2021-10-14 16:26 | NUR ---
Called and spoke with Randa at [facility]. She states they will visit pt tomorrow to evaluate. They will call me in the am with a time.
--- NOTE | 2021-10-14 18:45 | NUR ---
PT. AMBULATED WITH SBA AND FWW TO BED AND TOLERATED WELL. HER APPETITE HAS INCREASED. PT. DENIES FURTHER NEEDS. BED ALARM ON
--- NOTE | 2021-10-14 20:42 | NUR ---
report recieved, pt resting no complains or s/sx of distress, pt is very talkative.
--- NOTE | 2021-10-14 21:54 | NUR ---
pt resting in bed with eyes closed NAD.
--- NOTE | 2021-10-14 22:10 | NUR ---
CALL LIGHT ANSWERED, pt UP SBA WITH FWW TO VOID AND BACK TO BED. pt STEADY ON FEET, 400MLS YELLOW URINE NOTED ALONG WITH SMALL BM. BED ALARM RESUMED. IV SITE WNL, FLUIDS INFUSING WLN. PRIMARY RN MELVIN AWARE. CALL LIGHT IN REACH.
--- NOTE | 2021-10-15 00:53 | NUR ---
sba TO br, PT WAS INDEPENDANT WITH TOILETING, BACK TO BED, NO C/O OF PAIN NO NEEDS AT THIS TIME
--- NOTE | 2021-10-15 03:30 | NUR ---
PT CALLED TO BE ASSISTED TO THE TOILET, SBA FWW, VOID AND BACK TO BED, BED ALARM IS RESUMED, NO FURTHER NEEDS AT THIS TIME
--- NOTE | 2021-10-15 04:19 | NUR ---
pt RESTING IN BED, EYES CLOSED. ON RA, RR EVEN AND UNLABORED. NO DISTRESS NOTED. BED ALARM REMAINS ON FOR SAFETY AND CALL LIGHT IN REACH. IV SITE WNL, FLUIDS INFUSING DIRECTED. WILL CONTINUE TO MONITOR.
--- NOTE | 2021-10-15 06:41 | NUR ---
PT RESTING IN BED THROUGH NIGHT, CALLS APPROPRATLY TO GET OOB FOR THE BATHROOM. PT STATES SHE IS NEVER HUNGERY AND WILL NEED ENCURAGMENT TO EAT MEALS AND OFFER SNACKS BETWEEN MEALS.
--- NOTE | 2021-10-15 07:00 | NUR ---
DR GUEVARA NOTIFED OF BP 89/50, NO NEW ORDERS
--- NOTE | 2021-10-15 07:42 | NUR ---
REPORT RECEIVED FROM NIGHT RN AND PT CARE RESUMED. PT. IS SLEEPING WITH EYES CLOSED.
--- NOTE | 2021-10-15 09:15 | NUR ---
ASSESSMENT COMPLETED AND MEDS. GIVEN. PT. IS ALERT AND ORIENTED TO ALL. SHE DENIES PAIN. PT. ORDERED YOGURT SHE DID NOT LIKE BREAKFAST. IV WNL AND IVF INFUSING. DISCUSSED POC AND MEDS. LEFT RESTING WITH CALL LIGHT IN REACH.
--- NOTE | 2021-10-15 10:00 | NUR ---
CALLED [facility] TO SPEAK WITH NELSON. NELSON STATES SHE WILL CALL WITH AN ARRIVAL TIME.
--- NOTE | 2021-10-15 11:46 | NUR ---
PT. ASSISTED BY 1P AND FWW TO CHAIR FOR LUNCH. SHE IS HESITANT TO MOVE BUT TOLERATED WELL. GOWN CHANGED. LEFT RESTING WITH CALL LIGHT IN REACH.
--- NOTE | 2021-10-15 14:25 | NUR ---
PT IS ALERT, ORIENTED AND SHARED WITH ME SHE HAS A NEW ASSISTED LIVING TO MOVE TO. SOMEONE IS ALSO WILLING TO HELP HER MOVE AND SHE IS SO RELIEVED. SHE KNOWS GOD HAS CARED FOR HER. HAD PRAYER, PT THANKED ME. WILL FOLLOW
[2021-10-15] MEDS ORDERED: LIDOCAINE1 EACH TD (14:56)
[2021-10-15] MEDS ORDERED: FAMOTIDINE20 MG PO (14:56)
[2021-10-15] MEDS ORDERED: MIDODRINE HCL5 MG PO (14:56)
[2021-10-15] MEDS ORDERED: TYLENOL325 MG PO (14:56)
[2021-10-15] MEDS ORDERED: MAG-OXIDE400 MG PO (14:56)
[2021-10-15] MEDS ORDERED: CALCIUM CARBON200 MG PO (14:56)
[2021-10-15] MEDS ORDERED: FOLIC ACID1 MG PO (14:56)
[2021-10-15] MEDS ORDERED: VITAMIN D325 MCG PO (14:57)
[2021-10-15] MEDS ORDERED: VITAMIN B-1100 MG PO (14:57)
[2021-10-15] MEDS ORDERED: MELATONIN3 MG PO (14:57)
--- NOTE | 2021-10-15 15:17 | NUR ---
PATIENT WAS UP IN HER CHAIR FOR HER MEALS.
--- NOTE | 2021-10-15 15:33 | NUR ---
pt got shower. pt back in bed given warm blankets. call light within reach no further tasks at this time
--- NOTE | 2021-10-15 15:34 | NUR ---
ADDED ENSURE TO EACH MEAL FOR EXTRA CALORIES AND PROTEIN.
--- NOTE | 2021-10-15 16:08 | NUR ---
PATIENT STATES SHE WAS ONLY EATING 1-2 TIMES A WEEK AT HOME. HER MEAL WOULD BE A PIECE OF BREAD WITH PB, AN EGG, 1 VILLELA, AND A GLASS OF WATER. SHE HAD NOODLES, KHMER SAUSAGE AND A LITTLE BIT OF FROZEN VEGGIES WHICH SHE STATES SHE HAS HAD SINCE WINTER. SHE LIVED ALONE AND COULDN'T NAVIGATE THE STAIRS SO SHE COULDN'T LEAVE TO GO GROCERY SHOPPING. SHE IS LOOKING FORWARD TO GOING TO [facility]. ENSURE WILL BE COMING ON HER MEAL TRAYS HERE. SHE STATES SHE WILL DRINK THEM BECAUSE THEY WILL GIVE HER MORE VITAMINS AND PROTEIN. REGULAR DIET IN PLACE. WILL CONTINUE TO MONITOR.
--- NOTE | 2021-10-15 17:48 | NUR ---
PT. ASSISTED WITH CUTTING LARGE CHUNKS OF MATTED HAIR BY THIS NURSE AND SALES REPRESENTATIVE PRINTING PER REQUEST. AMBULATED TO CHAIR FOR DINNER WITH FWW AND 1PA.
--- NOTE | 2021-10-15 19:12 | NUR ---
report revieved from Briana, bedside shift report, pt alert and oriented, cheerful and excided to be leaving "tomorrow". per pt statment.
--- NOTE | 2021-10-16 00:14 | NUR ---
PT SITTING IN BED WATCHING TV, STATES NO NEEDS AT THIS TIME, OFFERED TOILETING BUT REFUSED. ENCOURAGED ORAL FLUIDS.
--- NOTE | 2021-10-16 00:35 | NUR ---
PT ASSISTD UP TO THE THE TOILET, SBA FWW, VOID AND BM, BACK TO BED, NO FURTHER NEEDS AT THIS TIME
--- NOTE | 2021-10-16 01:10 | NUR ---
PT CALLED FOR WARM BLANKET, OFFERED TOILETING WHEN BLANKET WAS APPLIED PT REFUSED, ENOURAGED PT TO DRINK MORE.
--- NOTE | 2021-10-16 03:45 | NUR ---
pt up to bathroom SBA, then back to bed. no other needs at this time.
--- NOTE | 2021-10-16 05:48 | NUR ---
PT AWAKE MOST OF THE NIGHT WATCHING TV. SHE HAS BEEN ABLE TO TRANSITION FOR SITTING TO STANDING W/O ASSIST WITH COACHING TO TECHNIQUE. PT STATES SHE IS READY TO LEAVE TODAY
--- NOTE | 2021-10-16 08:00 | NUR ---
Texted [facility] asking what time this pt can admit today. Received a reply, she will need to call me later. Contacted Jazmin Ac, who has been helping Sridevi. She states they are working on pt getting moved. This won't happen for a few days. [facility] has agreed to provide a bed for this pt. Jazmin also states they cannot take the pts clothing as they are dirty and have maggots in them. I suggested they have a woman that is moving her belonging add this to the bill and take them to a laundromat and wash them before taking them to [facility]. Let her know I can send Oksana in scrubs when she discharges.
--- NOTE | 2021-10-16 09:01 | NUR ---
TO PT ROOM FOR ASSESSMENT. PT A/O, EDUCATED ON PLAN OF CARE AND DISCHARGE. CALL LIGHT WITHIN REACH.
--- NOTE | 2021-10-16 10:30 | NUR ---
Spoke with Prta[facility], pt can admit today. I will set up a taxi for 1pm. She requests we send briefs with pt, as she does not have any clothing including underware at this time. Left a note for the charge nurse. [employer] is bringing scrubs. Called and scheduled the taxi for 1 pm. Orders and dc summary faxed to Prat[facility]. Pt does not need a covid swab as they check all pts on admit.
== END 2021-10-16 12:50 | disposition home or self-care (01) | DRG 640 ==
LOC: ED 12:03 → MS 16:41
PROVIDERS: ADMIT Internal Medicine; ATTEND Internal Medicine
DX: E87.6 Hypokalemia (principal); E43 Unspecified severe protein-calorie malnutrition; Z20.822 Contact with and (suspected) exposure to COVID-19; E83.42 Hypomagnesemia; E83.39 Other disorders of phosphorus metabolism; F10.21 Alcohol dependence, in remission; Z68.23 Body mass index [BMI] 23.0-23.9, adult; Z90.721 Acquired absence of ovaries, unilateral; Z98.890 Other specified postprocedural states; Z88.0 Allergy status to penicillin; Z79.899 Other long term (current) drug therapy; W18.39XA Other fall on same level, initial encounter; Y92.009 Unspecified place in unspecified non-institutional (private) residence as the place of occurrence of the external cause
CPT/HCPCS: 36415; 80048; 80053; 81001; 83735; 84100; 85025; 85060; 87502; 93005; 93010; 96374; 96375; 97162; 97165; 97530; 99285-25; J3475; J3480; J7030; J7060; U0003